=== PATIENT | female | born 1980 | race Caucasian/White ===

== ENCOUNTER 2016-11-03 09:21 | Emergency (ER) | payer OTHER ==
[2016-11-03 09:40] VITALS: BP 119/73
--- NOTE | 2016-11-03 10:21 | UC ---
[facility] General HPI - HPI Summary HPI Summary: complaint of pain in her upper jaw left side for the last 4 months tooth pulled 4 months ago by [facility] in [place] hasn't followed up with dentist pain is intermittent since then , pain in gum that shoots into her face mild swelling in left cheek pain is worse with chewing , hot and cold foods hurts her jaw denies fever taking ibuprofen for pain without relief lost her dad several days ago feels sad and depressed not sleeping well has support from other family members-denies suicidal ideation since her father she is having more symptoms of her chronic conditions- generalized abdominal pain, neck pain lower back pain for the last year sometimes the pain starts in her hands then goes to her back then down her legs- she had appt for further evaluation and nerve testing with her PCP at [facility] but she cancelled her appt. intermittent lower back pain chronic neck pain, hx of migraines denies fever and incontinence - History of Current Complaint Hx Obtained From: Patient <Aishwarya Donnelly - Last Filed: 11/03/16 10:45> <Gloria Le - Last Filed: 11/03/16 11:40> - History of Current Complaint Chief Complaint: UCDentalProblem Stated Complaint: LUMP INSIDE OF MOUTH Time Seen by Provider: 11/03/16 10:10 - Allergy/Home Medications Allergies/Adverse Reactions: Allergies Allergy/AdvReac Type Severity Reaction Status Date / Time Hydrocodone AdvReac Nausea Verified 11/03/16 09:40 PMH/Surg Hx/FS Hx/Imm Hx Previously Healthy: No - chronic back pain, migrinaes GI/ History: Other - chronic abdominal pain for over 1 year Other GI/ History: chronic abdominal pain Neurological History: Migraine Psychological History: Depression - Surgical History Surgical History: Yes Surgery Procedure, Year, and Place: Tubal ligation 2004, . Cholecystectomy . x4: 2002, 2004, 2006, 2008, . Cervical CA surgery age 16. D/C, 2001. uterine ablation. - Family History Known Family History: Positive: Cardiac Disease, Hypertension, Diabetes - Social History Occupation: Employed Part-time Lives: With Family Alcohol Use: Occasionally Alcohol Amount: 4 PER WEEK Substance Use Type: Marijuana Substance Use Comment - Amount & Last Used: Occasionally Smoking Status (MU): Heavy Every Day Tobacco Smoker Type: Cigarettes Amount Used/How Often: 1/2 PPD Have You Smoked in the Last Year: Yes Household Exposure Type: Cigarettes Cessation Counseling: Patient Advised to Stop - Immunization History Most Recent Influenza Vaccination: not utd Most Recent Tetanus Shot: unsure Most Recent Pneumonia Vaccination: none <Aishwarya Donnelly - Last Filed: 11/03/16 10:45> Review of Systems Constitutional: Negative Skin: Negative Eyes: Negative ENT: Dental Pain Respiratory: Negative Cardiovascular: Palpitations Gastrointestinal: Abdominal Pain Genitourinary: Negative Motor: Negative Neurovascular: Negative Musculoskeletal: Other: - lower back pain Neurological: Numbness Psychological: Depressed All Other Systems Reviewed And Are Negative: Yes <Aishwarya Donnelly - Last Filed: 11/03/16 10:45> Physical Exam Triage Information Reviewed: Yes Appearance: Well-Nourished, Pain Distress Vital Signs: Initial Vital Signs Temp 97.4 F 11/03/16 09:31 Pulse 78 11/03/16 09:31 Resp 16 11/03/16 09:31 BP 119/73 11/03/16 09:31 Pulse Ox 100 11/03/16 09:31 Vital Signs Reviewed: Yes Eyes: Positive: Conjunctiva Clear ENT: Positive: Pharynx normal, Other: - left side of face with milfd edema no orbital edema. Negative: Nasal congestion, TMs normal Dental: Positive: Abscess @ - 13-14 Neck: Positive: No Lymphadenopathy Respiratory: Positive: Lungs clear, Normal breath sounds, No respiratory distress, No accessory muscle use Cardiovascular: Positive: RRR, No Murmur, Pulses Normal Abdomen Description: Positive: Nontender, No Organomegaly, Soft. Negative: CVA Tenderness (R), CVA Tenderness (L), Distended, Guarding Bowel Sounds: Positive: Present Musculoskeletal: Positive: Other: - Spine have no noted deformities or signs of inflammation. Curvature of thoracic, and lumbar spine are within normal limits. Bony features of shoulders and hips are of equal height bilaterally. Posture is upright, and gait is smooth and normal. Spinous processes of T1-L5 palpable, midline, and non-tender; No step-offs. Back muscles are tight no paraspinal tenderness. Flexion, extension, and rotation of the remaining spinal column is within normal limits. Patient can flex forward and reach toes with minimal pain. Lateral bending causes no discomfort when bending to the right and left side. Neurological Exam: Normal Neurological: Positive: Other: - negative SLR patellar reflexes are intact equal strength in BUE, negative phalen's sign Psychological Exam: Normal Skin Exam: Normal <Aishwarya Donnelly - Last Filed: 11/03/16 10:45> Vital Signs: Initial Vital Signs Temp 97.4 F 11/03/16 09:31 Pulse 78 11/03/16 09:31 Resp 16 11/03/16 09:31 BP 119/73 11/03/16 09:31 Pulse Ox 100 11/03/16 09:31 <Gloria Le - Last Filed: 11/03/16 11:40> Course/Dx - Course Course Of Treatment: exam completed. will treat for dental abscess. pt with several other chronic complaits of neckpain, back pain, abdominal pain, bilateral arm pain and numbness- no urgent s/s of need for further evaluation and discussed her need for followup care with PCP, dentist and counseling - Differential Dx - Multi-Symptom Provider Diagnoses: dental abscess <Aishwarya Donnelly - Last Filed: 11/03/16 10:45> Discharge <Aishwarya Donnelly - Last Filed: 11/03/16 10:45> <Gloria Le - Last Filed: 11/03/16 11:40> - Discharge Plan Condition: Stable Disposition: HOME Prescriptions: Amoxicillin/Clavulanate TAB* [Augmentin TAB 875*] 875 mg PO BID #20 tab oxyCODONE/Acetamin 5/325 MG* [Percocet 5/325 TAB*] 1 tab PO Q4H PRN #12 tab MDD 6 PRN Reason: Pain Patient Education Materials: Dental Abscess (ED) Referrals: Beny Boyle DO [Primary Care Provider] - Additional Instructions: Please start antibiotic as directed please call dentist for followup care Increase fluids and rest Take percocet for 2 days then return to taking acetaminophen or ibuprofen for pain Please review your discharge instructions. If your symptoms do not improve please call your primary care provider or return to urgent care. Please call [facility] for bereavement counseling- E-mail: [email or web address] It is important that your return to your primary care provider for management of your chronic back pain, neck pain, abdominal pain, migraines and numbness in your hands If any of your symptoms worsen please return to urgent care or the emergency department Attestation Statement User Type: Provider - I was available for consult. This patient was seen by the SHANKAR. The patient was not presented to, seen by, or examined by me. -Karel <Gloria Le - Last Filed: 11/03/16 11:40>
== END 2016-11-03 10:52 | disposition home or self-care (01) ==
LOC: UCEAST 09:21
DX: K04.7 Periapical abscess without sinus (principal)
CPT/HCPCS: 99212; G0463

== ENCOUNTER 2017-02-01 12:35 | Emergency (ER) | payer SELFPAY ==
[2017-02-01 12:52] VITALS: BP 133/91
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
== END 2017-02-01 12:58 | disposition short-term general hospital (02) ==
LOC: UCEAST 12:35
DX: R41.82 Altered mental status, unspecified (principal); R03.0 Elevated blood-pressure reading, without diagnosis of hypertension; R51 Headache; H53.8 Other visual disturbances; R26.81 Unsteadiness on feet; J45.909 Unspecified asthma, uncomplicated; Z88.6 Allergy status to analgesic agent; Z88.5 Allergy status to narcotic agent; F17.210 Nicotine dependence, cigarettes, uncomplicated
CPT/HCPCS: 99213; G0463

== ENCOUNTER 2017-02-01 13:17 | Emergency (ER) | payer SELFPAY ==
[2017-02-01] MEDS ORDERED: traMADol TAB* 50 MG PO ONE (14:03)
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
[2017-02-01 15:47] VITALS: BP 113/72
== END 2017-02-01 15:58 | disposition home or self-care (01) ==
LOC: ED 13:17
DX: S13.9XXA Sprain of joints and ligaments of unspecified parts of neck, initial encounter (principal); M54.2 Cervicalgia; H53.8 Other visual disturbances; R51 Headache; V49.9XXA Car occupant (driver) (passenger) injured in unspecified traffic accident, initial encounter; Y93.9 Activity, unspecified; Y92.9 Unspecified place or not applicable
CPT/HCPCS: 70450; 72125; 99283; A9270-GY

== ENCOUNTER 2017-06-14 04:48 | Observation (INO) | payer OTHER ==
[2017-06-14] MEDS ORDERED: NS 0.9% 1000 ML* 1,000 ML IV ONE (05:14)
[2017-06-14] MEDS ORDERED: Ketorolac INJ* 30 MG/ML 1 ML VIAL IV PUSH ONE (05:15)
[2017-06-14] MEDS ORDERED: Dexamethasone IV* 4 MG/ML 5 ML VIAL (20 MG) IVPB ONE (05:15)
[2017-06-14] MEDS ORDERED: Piperacillin/Tazobac ADVAN(*) 3.375 GM in NS 0.9% 100 ML* 100 ML IVPB ONE (05:15)
[2017-06-14] MEDS ORDERED: Metoclopramide IV* 5 MG/ML 2 ML VIAL IV SLOW PU ONE (05:31)
[2017-06-14 05:53] LABS: Hematocrit 45 % (35-47); Hemoglobin 15.7 g/dl (12.0-16.0); Mean Corpuscular HGB Conc 35 g/dl (31-36); Mean Corpuscular Hemoglobin 32 pg (27-31); Mean Corpuscular Volume 92 fL (80-97); Mean Platelet Volume 8 um3 (7.4-10.4); Platelet Count 267 10^3/ul (150-450); Red Cell Distribution Width 13 % (10.5-15); White Blood Count 25.1 10^3/ul (3.5-10.8)
[2017-06-14 06:05] LABS: EGFR Non-African American 118.3 (>60)
[2017-06-14] MEDS ORDERED: KCL 20 MEQ/100 ML IVPREMIX* 20 MEQ/100 ML BAG IV ONE (06:17)
[2017-06-14 06:36] LABS: ABS Basophils 0.1 10^3/ul (0-0.2); ABS Eosinophils 0 10^3/ul (0-0.6); ABS Lymphocytes 0.9 10^3/ul (1.0-4.8); ABS Monocytes 2.5 10^3/ul (0-0.8); ABS Neutrophils 21.6 10^3/ul (1.5-7.7); ABS Nucleated RBC 0 10^3/ul; Eosinophil % 0 % (0-6); Lymphocyte % 3.6 % (25-47); Nucleated Red Blood Cells % 0
[2017-06-14] MEDS: KCL premix 10MEQ/50 ML x 2 BAGS IV SCH ×2 (07:41→08:45)
[2017-06-14] MEDS ORDERED: Iohexol 300* (CONTRAST) 10 ML SDV IV ONE (09:00)
--- NOTE | 2017-06-14 09:36 | RAD ---
INDICATION: Vomiting. Intermittent cough exacerbated with vomiting. Strep throat on antibiotics. Progressive worsening. Clinical concern for potential peritonsillar abscess. COMPARISON: February 01, 2017 CT cervical spine without contrast. TECHNIQUE: Multidetector CT images skull base to lung apices with 50 mL Omnipaque 300 IV contrast. Multiplanar reformation. REPORT: Artifact from dental amalgam. Mild thickening of the LEFT hypopharyngeal mucosal space contours at the level of the vallecula including the LEFT margin of the epiglottis. LEFT greater than RIGHT prominent adenoids with midline approximation. Mild increased density in the LEFT paravertebral fat . No loculated abscess collection evident. No abnormal soft tissue gas collection. Unremarkable false and true vocal cords and visualized subglottic airway. Top normal 1.3 cm short axis jugulodigastric lymph nodes and additional upper normal size neck lymph nodes at the internal jugular chains and posterior triangles. Unremarkable submandibular and parotid glands. Unremarkable thyroid gland. No alveolar consolidation at the visualized upper lung zones. Small mucous retention cysts or polyps at the floors of the maxillary sinuses. Negative for paranasal sinus air-fluid levels within the [id number]. Clear mastoid air spaces. No suspicious osseous lesions evident. IMPRESSION: 1. Mild thickening of the LEFT hypopharyngeal mucosal space contours at the level of the vallecula including the LEFT margin of the epiglottis. LEFT greater than RIGHT prominent adenoids with midline approximation. Mild increased density in the LEFT paravertebral fat. No loculated abscess collection evident. 2. Top normal 1.3 cm short axis jugulodigastric lymph nodes and additional upper normal size neck lymph nodes at the internal jugular chains and posterior triangles.
[2017-06-14] MEDS: Clindamycin 600 MG IVPREMIX(* 600 MG/50 ML SDV IV SCH ×2 (11:24→20:24)
[2017-06-14] MEDS: Ondansetron INJ* 2 MG/ML VIAL IV PRN ×3 (11:34→20:21)
[2017-06-14] MEDS: Morphine INJ* 2 MG/ML 1 ML SYRINGE (TWO MG - NEW SYRINGE VERSION) IV PRN ×3 (11:34→21:28)
[2017-06-14 12:40] LABS: Urine Appearance Cloudy; Urine Blood 2+ (Negative); Urine Color Amber; Urine Ketones 2+ (Negative); Urine Protein 2+(100 mg/dL) (Negative); Urine Specific Gravity > 1.060 (1.010-1.030); Urine Urobilinogen Positive (Negative)
--- NOTE | 2017-06-14 13:14 | HP ---
HISTORY AND PHYSICAL: DATE OF ADMISSION: 06/12/17 TIME OF EXAMINATION: 9 a.m. PRIMARY CARE PHYSICIAN: Dr. Singletary. CHIEF COMPLAINT: Sore throat, nausea, and vomiting. HISTORY OF PRESENT ILLNESS: This is a 37-year-old female with no past medical history who presents with 2 days of sore throat. She was diagnosed with strep pharyngitis at urgent care yesterday and was given amoxicillin. She had taken several doses of amoxicillin when she began vomiting last night. She said she vomited every 20 minutes and was unable to eat anything, so she came to the emergency department. She reports some subjective fevers and chills. She has had 1 sick contact in her home and denies earache, runny nose, but she has had a cough that is nonproductive. PAST MEDICAL HISTORY: None. HOME MEDICATIONS: None. SOCIAL HISTORY: She lives with her girlfriend and their 5 children. She smokes a half a pack of cigarettes per day and uses occasional alcohol. She works cleaning homes. REVIEW OF SYSTEMS: Positive for fever, chills, sore throat, cough and negative for weight changes, abdominal pain, diarrhea, constipation, or body aches. PHYSICAL EXAMINATION GENERAL: Alert, well nourished female, in no distress. VITAL SIGNS: Temperature 99.8, heart rate 105, respirations 16, pulse ox 97% on room air, blood pressure 135/86. HEENT: No conjunctival injection. Moist mucosa. Pharyngeal erythema is noted and markedly enlarged tonsils with exudates. No palatal petechiae or ulcers. NECK: Bilateral submandibular lymphadenopathy. No cervical adenopathy. CHEST: Regular rate and rhythm. PMI is nondisplaced. Lungs are clear bilaterally. ABDOMEN: Soft, nontender, nondistended. EXTREMITIES: No rashes. No edema. LABORATORY DATA: White blood cells 25, hemoglobin 15.7, platelets 267. Sodium 132, potassium 3.0, bicarb 22, creatinine 0.58. Alk phos 115, ALT 109, AST 58. Monospot negative. ASSESSMENT AND PLAN: This is a 37-year-old female with no past medical history , who presents 1 day after being diagnosed with strep pharyngitis at urgent care with worsening throat pain and nausea and vomiting. 1. Strep pharyngitis. We will treat with clindamycin IV until she is able to take p.o., at which time she can be switched to p.o. clindamycin. Also, check a flu swab. I am checking a CT neck to rule out retropharyngeal or peritonsillar abscess. Continue IV fluids until she is able to take p.o. and check flu swab. 2. Sepsis. Likely related to strep pharyngitis. She has no other infectious sources at this point. 3. Elevated transaminases, likely related to sepsis. She has no abdominal complaints except nausea and vomiting, which I suspect are related to either pharyngitis or the amoxicillin that she took. We will continue to trend. 4. DVT prophylaxis. Alfredo. [id number]/[facility] #: [id number] MTDD
--- NOTE | 2017-06-14 20:05 | ED ---
Erin Barry Nilda, scribed for Purvi Salcedo MD on 06/14/17 at 0524 . Complex/Multi-Sys Presentation - HPI Summary HPI Summary: This patient is a 37 year old F presenting to [facility] accompanied by partner with a chief complaint of constant vomiting for the past 3-4 hours. Per partner, pt was diagnosed with strep throat yesterday. Partner reports sore throat, cough, swollen tonsils with exudate, fever, and diarrhea. Pain rated 8/10 in severity. Pt was treated with 4 Amoxicillin (500mg) so far yesterday, but has been vomiting. Symptoms aggravated and alleviated by nothing. - History Of Current Complaint Chief Complaint: EDNauseaVomitDiarrh Time Seen by Provider: 06/14/17 05:00 Hx Obtained From: Patient, Family/Bacteriology Technician Onset/Duration: Sudden Onset, Lasting Hours, Still Present Timing: Constant Severity Currently: Severe Location: Pain At: - throat Aggravating Factor(s): nothing Alleviating Factor(s): nothing Associated Signs And Symptoms: Positive: Other - sore throat, cough, swollen tonsils with exudate, fever, and diarrhea. - Allergies/Home Medications Allergies/Adverse Reactions: Allergies Allergy/AdvReac Type Severity Reaction Status Date / Time Acetaminophen [From Percocet] Allergy Itching Verified 02/01/17 12:59 Oxycodone [From Percocet] Allergy Itching Verified 02/01/17 12:59 Hydrocodone AdvReac Nausea Verified 02/01/17 12:59 Unknown Pain medication Allergy Itching Uncoded 02/01/17 12:59 PMH/Surg Hx/FS Hx/Imm Hx Endocrine/Hematology History: Denies: Hx Diabetes - hypoglycemia, Hx Thyroid Disease Cardiovascular History: Denies: Hx Hypertension, Other Cardiovascular Problems/Disorders Respiratory History: Reports: Hx Asthma - Exercise induced, humidity Denies: Hx Chronic Obstructive Pulmonary Disease (COPD), Other Respiratory Problems/Disorders GI History: Denies: Hx Ulcer, Other GI Disorders History: Reports: Hx Kidney Stones - LAST TIME 2004 Musculoskeletal History: Denies: Other Musculoskeletal History Sensory History: Denies: Hx Contacts or Glasses, Hx Hearing Aid Opthamlomology History: Denies: Hx Contacts or Glasses Neurological History: Reports: Hx Migraine - NOT OFTEN Denies: Other Neuro Impairments/Disorders - Cancer History Cancer Type, Location and Year: Cervical CA - Surgical History Surgery Procedure, Year, and Place: Tubal ligation 2004, [place]. Cholecystectomy [place]. x4: 2002, 2004, 2006, 2008, . Cervical CA surgery age 16. D/C, 2001. uterine ablation. Hx Anesthesia Reactions: No Infectious Disease History: No Infectious Disease History: Denies: Hx Clostridium Difficile, Hx Hepatitis, Hx Human Immunodeficiency Virus (HIV), Hx of Known/Suspected MRSA, Hx Shingles, Hx Tuberculosis, Hx Known/ Suspected VRE, Hx Known/Suspected VRSA, History Other Infectious Disease, Traveled Outside the [place] in Last 30 Days - Family History Known Family History: Positive: Cardiac Disease, Hypertension, Diabetes - Social History Lives: With Family Alcohol Use: Occasionally Alcohol Amount: 4 PER WEEK-Last Drink 2 drinks a couple days ago Substance Use Type: Reports: Marijuana Substance Use Comment - Amount & Last Used: Occasionally- last used 1 week ago Smoking Status (MU): Heavy Every Day Tobacco Smoker Type: Cigarettes Amount Used/How Often: 1/2 PPD Have You Smoked in the Last Year: Yes Review of Systems Positive: Fever Positive: Sore Throat, Other - swollen tonsils with exudate Positive: Cough Positive: Vomiting, Diarrhea All Other Systems Reviewed And Are Negative: Yes Physical Exam - Summary Physical Exam Summary: VITAL SIGNS: Reviewed. GENERAL: Patient is a well-developed and nourished female who is lying comfortable in the stretcher. Patient is not in any acute respiratory distress. HEAD AND FACE: No signs of trauma. No ecchymosis, hematomas or skull depressions. No sinus tenderness. EYES: PERRLA, EOMI x 2, No injected conjunctiva, no nystagmus. EARS: Hearing grossly intact. Ear canals and tympanic membranes are within normal limits. THROAT: Bilat tonsillar hyperemia with exudate, left mildy more than right NECK: Supple, trachea is midline, cervical lymphadenopathy that's tender bilaterally. no JVD, no carotid bruit, no c-spine tenderness, neck with full ROM. CHEST: Symmetric, no tenderness at palpation LUNGS: Clear to auscultation bilaterally. No wheezing or crackles. CVS: Regular rate and rhythm, S1 and S2 present, no murmurs or gallops appreciated. ABDOMEN: Soft, non-tender. No signs of distention. No rebound no guarding, and no masses palpated. Bowel sounds are normal. EXTREMITIES: FROM in all major joints, no edema, no cyanosis or clubbing. NEURO: Alert and oriented x 3. No acute neurological deficits. Speech is normal and follows commands. SKIN: Dry and warm Triage Information Reviewed: Yes Vital Signs On Initial Exam: Initial Vitals Temp Pulse Resp BP Pulse Ox 99.8 F 105 16 135/86 97 06/14/17 04:49 06/14/17 04:49 06/14/17 04:49 06/14/17 04:49 06/14/17 04:49 Vital Signs Reviewed: Yes Diagnostics - Vital Signs Vital Signs Temp Pulse Resp BP Pulse Ox 06/14/17 04:49 99.8 F 105 16 135/86 97 - Laboratory Result Diagrams: 06/14/17 05:27 06/14/17 05:27 Lab Statement: Any lab studies that have been ordered have been reviewed, and results considered in the medical decision making process. Complex Multi-Symp Course/Dx Assessment/Plan: Pt is a 37 y/o F who presents to ER with dx of strep yesterday. Pt is vomiting and unable to eat. Exam titus pt has enlarged tonsils bilaterally. Wbc and CRP elevated. 0616 Dr. Basilio (hospitalist) agrees to admit pt. Pt is stable and will be admittd for iv steroids and iv abx. Dx. Acute tonsillitis - Diagnoses Provider Diagnoses: Acute tonsillitis - Physician Notifications Discussed Care Of Patient With: Kera Basilio - Hospitalist Time Discussed With Above Provider: 06:16 Instructed by Provider To: Admit As Inpatient Discharge - Discharge Plan Condition: Stable Disposition: ADMITTED TO [facility] Referrals: Beny Boyle DO [Primary Care Provider] - The documentation as recorded by the Erin toribio Nilda accurately reflects the service I personally performed and the decisions made by me, Purvi Salcedo MD.
[2017-06-14] MEDS: HYDROmorphone INJ* 2 MG/ML CARPUJECT SYRINGE IV SLOW PU PRN (22:52)
[2017-06-15] MEDS: Clindamycin 600 MG IVPREMIX(* 600 MG/50 ML SDV IV SCH ×3 (02:55→20:09)
[2017-06-15] MEDS: HYDROmorphone INJ* 2 MG/ML CARPUJECT SYRINGE IV SLOW PU PRN ×7 (03:02→22:59)
[2017-06-15 06:36] LABS: Hematocrit 40 % (35-47); Hemoglobin 13.7 g/dl (12.0-16.0); Mean Corpuscular HGB Conc 34 g/dl (31-36); Mean Corpuscular Hemoglobin 32 pg (27-31); Mean Corpuscular Volume 93 fL (80-97); Mean Platelet Volume 8 um3 (7.4-10.4); Platelet Count 255 10^3/ul (150-450); Red Cell Distribution Width 13 % (10.5-15); White Blood Count 21.2 10^3/ul (3.5-10.8)
[2017-06-15 06:55] LABS: ABS Basophils 0.1 10^3/ul (0-0.2); ABS Eosinophils 0 10^3/ul (0-0.6); ABS Lymphocytes 2.6 10^3/ul (1.0-4.8); ABS Monocytes 2.2 10^3/ul (0-0.8); ABS Neutrophils 16.3 10^3/ul (1.5-7.7); ABS Nucleated RBC 0 10^3/ul; Eosinophil % 0.1 % (0-6); Lymphocyte % 12.3 % (25-47); Nucleated Red Blood Cells % 0
[2017-06-15] MEDS: Ondansetron INJ* 2 MG/ML VIAL IV PRN ×3 (07:21→20:09)
[2017-06-15 10:00] LABS: EGFR Non-African American 134.2 (>60)
--- NOTE | 2017-06-15 10:06 | PN ---
Subjective Date of Service: 06/15/17 Interval History: No N/V since last night Throat is painful Able to tolerate some liquid broth this AM No trouble handling secretions Objective Active Medications: Hydromorphone HCl (Dilaudid Inj*) 1 mg IV SLOW PU Q4H PRN PRN Reason: PAIN Last Admin: 06/15/17 07:20 Dose: 1 mg Clindamycin HCl/Dextrose (Cleocin 600 Mg Ivpremix(*) Sdv) 600 mg in 50 mls @ 100 mls/hr IV Q8H FERNANDO Last Admin: 06/15/17 02:55 Dose: 100 mls/hr Sodium Chloride (Ns 0.9% 1000 Ml*) 1,000 mls @ 125 mls/hr IV PER RATE FERNANDO Stop: 06/16/17 18:14 Ondansetron HCl (Zofran Inj*) 4 mg IV Q4H PRN PRN Reason: NAUSEA Last Admin: 06/15/17 07:21 Dose: 4 mg Vital Signs - 8 hr 06/15/17 06/15/17 06/15/17 02:27 03:02 04:47 Temperature 98.1 F Pulse Rate 96 Respiratory 20 18 16 Rate Blood Pressure 120/62 (mmHg) O2 Sat by Pulse 98 Oximetry 06/15/17 06/15/17 06/15/17 07:10 07:19 07:20 Temperature 97.8 F Pulse Rate 84 94 Respiratory 18 18 Rate Blood Pressure 112/72 (mmHg) O2 Sat by Pulse 98 Oximetry 06/15/17 06/15/17 07:27 08:53 Temperature Pulse Rate Respiratory 18 16 Rate Blood Pressure (mmHg) O2 Sat by Pulse Oximetry Oxygen Devices in Use Now: None Appearance: NAD Eyes: No Scleral Icterus, PERRLA Ears/Nose/Mouth/Throat: - - TMs sharp b/l with good light reflex, erythematous and swollen tonsills with small amount of exudate Neck: - - anterior tender DEWEY in cervical chain Respiratory: Symmetrical Chest Expansion and Respiratory Effort, Clear to Auscultation Cardiovascular: RRR Abdominal: NL Sounds; No Tenderness; No Distention, No Hepatosplenomegaly Lymphatic: No Cervical Adenopathy, No Axillary Adenopathy Extremities: No Edema Skin: No Rash or Ulcers Neurological: Alert and Oriented x 3 Result Diagrams: 06/15/17 06:25 06/15/17 06:25 Microbiology and Other Data: Microbiology 06/14/17 11:25 Influenza Types A,B Antigen (YOSELIN) - Final Nasopharyngeal Specimen received for Influenza A/B Molecular testing Assess/Plan/Problems-Billing Assessment: 37 yo F admitted with sepsis 2/2 strep pharyngitis - Patient Problems (1) Sepsis Comment: 2/2 strep pharyngitis failed outpatient amoxicillin Clindamycin IV 2 liters NS today at 125cc/hr advance diet as tolerated (2) Tobacco abuse Comment: counseled cessation declining nicotine replacement (3) Hypokalemia Comment: recheck now and replace as needed (4) DVT prophylaxis Comment: SCDs
[2017-06-15] MEDS: NS 0.9% 1000 ML* 1,000 ML IV SCH ×2 (10:33→18:09)
[2017-06-16] MEDS: HYDROmorphone INJ* 2 MG/ML CARPUJECT SYRINGE IV SLOW PU PRN ×4 (01:10→08:32)
[2017-06-16] MEDS: Clindamycin 600 MG IVPREMIX(* 600 MG/50 ML SDV IV SCH (03:02)
[2017-06-16] MEDS: Ondansetron INJ* 2 MG/ML VIAL IV PRN (03:12)
[2017-06-16] MEDS: ALPRAZolam TAB* 0.25 MG PO ONE ×2 (05:39→06:01)
[2017-06-16 08:04] LABS: ABS Basophils 0 10^3/ul (0-0.2); ABS Eosinophils 0.1 10^3/ul (0-0.6); ABS Lymphocytes 1.8 10^3/ul (1.0-4.8); ABS Monocytes 1.2 10^3/ul (0-0.8); ABS Neutrophils 9.8 10^3/ul (1.5-7.7); ABS Nucleated RBC 0 10^3/ul; Eosinophil % 0.4 % (0-6); Hematocrit 36 % (35-47); Hemoglobin 12.6 g/dl (12.0-16.0); Lymphocyte % 14.1 % (25-47); Mean Corpuscular HGB Conc 35 g/dl (31-36); Mean Corpuscular Hemoglobin 32 pg (27-31); Mean Corpuscular Volume 91 fL (80-97); Mean Platelet Volume 8 um3 (7.4-10.4); Nucleated Red Blood Cells % 0; Platelet Count 250 10^3/ul (150-450); Red Blood Count 3.93 10^6/ul (4.0-5.4); Red Cell Distribution Width 13 % (10.5-15)
[2017-06-16 08:16] VITALS: BP 113/72
[2017-06-16 08:23] LABS: EGFR Non-African American 176.5 (>60)
[2017-06-16] MEDS ORDERED: Potassium Chloride LIQUID* 20 MEQ PACKET PO SCH (09:00)
[2017-06-16] MEDS ORDERED: oxyCODONE ORAL.SOLN* 5 MG/5 ML UDC PO PRN (09:44)
[2017-06-16] MEDS ORDERED: Clindamycin Oral SOLUTION* 75 MG/5 ML ORAL.SOLN PO SCH (14:00)
--- NOTE | 2017-06-17 00:35 | DS ---
CC: Dr. Boyle; ROCIO Guillaume * DISCHARGE SUMMARY: DATE OF ADMISSION: 06/14/17 DATE OF DISCHARGE: 06/16/17 PRIMARY CARE PROVIDER: ROCIO Guillaume. PRIMARY DIAGNOSIS: pharyngitis. SECONDARY DIAGNOSES: Include: 1. Hypokalemia. 2. Transaminitis. MEDICATIONS ON DISCHARGE: Include: 1. Clindamycin oral solution 300 mg 3 times a day for 10 additional days. 2. Zofran 4 mg ODT every 4 hours as needed for nausea. 3. Oxycodone oral solution 10 mg every 4 hours as needed for pain, dispensed quantity for 3 additional days. PERTINENT LABORATORY DATA: Notable for white blood cell count on presentation 25.1, on discharge 13.0 which was 75.8% neutrophils, potassium on the day of discharge was 3.0 prior to administration of 60 mEq of potassium. On followup please, followup improvement in tonsillar erythema and edema. Consider repeat CBC to monitor for complete resolution of leukocytosis. Consider BMP to monitor for hypokalemia resolution. Please follow up microbiology for urinalysis until completion. HISTORY OF PRESENT ILLNESS AND HOSPITAL COURSE: This is a 37-year-old female who was diagnosed with strep throat at urgent care the day prior to presentation. She was placed on amoxicillin; however, developed worsening nausea and vomiting, was unable to take her medications and presented to the hospital. She was placed on clindamycin IV. Her leukocytosis improved and her symptoms improved, although she did require a fairly high amount of pain medication before transitioning to oxycodone oral solution on the day of discharge which she was tolerating well. Her diet was advanced to a soft diet where she was able to eat and drink. She was noted to have worsening hypokalemia nadired at 3.0 suspect in the setting of poor dietary intake in the setting of strep throat. There are no complications at this patient's hospital stay. Reason to return to the hospital included but were not limited to recurrent or worsening symptoms including inability to swallow medications, nausea, vomiting , chest pain, shortness of breath, loss of consciousness, near loss of consciousness, or bleeding from any source was discussed with the patient, she acknowledged understanding. Greater than 45 minutes was spent in the discharge of this patient, greater than half was spent [id number] with the patient. [id number]/[facility] #: [id number] [facility]
== END 2017-06-16 14:50 | disposition home or self-care (01) ==
LOC: ED 04:48 → INTOOBSV 08:31 → MED 08:31
PROVIDERS: ADMIT Internal Medicine; ATTEND Internal Medicine
DX: J02.0 Streptococcal pharyngitis (principal); A40.9 Streptococcal sepsis, unspecified; R05 Cough; R50.9 Fever, unspecified; R19.7 Diarrhea, unspecified; F17.210 Nicotine dependence, cigarettes, uncomplicated; R11.10 Vomiting, unspecified
CPT/HCPCS: 36415; 70491; 80048; 80053; 81003; 81015; 82248; 84702; 85025; 86140; 86308; 87502; 96365; 96366; 96375; 99284; A9270-GY; G0378; J1100; J1170; J1885; J2270; J2405; J2543; J2765; J3480; Q9967

== ENCOUNTER 2017-12-02 11:30 | Emergency (ER) | payer SELFPAY ==
[2017-12-02 11:37] VITALS: BP 119/78
[2017-12-02] MEDS ORDERED: Metoclopramide IV* 5 MG/ML 2 ML VIAL IV ONE (11:50)
[2017-12-02] MEDS ORDERED: Ketorolac INJ* 30 MG/ML 1 ML VIAL IV PUSH ONE (11:50)
[2017-12-02] MEDS ORDERED: diPHENhydraMINE IV* 50 MG/ML 1 ml VIAL (BENADRYL) IV ONE (11:50)
[2017-12-02] MEDS ORDERED: NS 0.9% 1000 ML* 1,000 ML IV ONE (11:51)
--- NOTE | 2017-12-02 13:52 | UC ---
Jackson Barry Rebecca, scribed for Anil Alberto MD on 12/02/17 at 1151 . General HPI - HPI Summary HPI Summary: Pt is a 37 y/o F who presents to [facility] c/o diffuse right-sided pain and R hand numbness for 3 days. Pt states "my whole, right side hurts and is numb" with associated pain ranked 10/10 on triage. Describes pain as intermittent, sharp shooting sensations that go into her head, torso, entire RUE, and entire RLE with numbness in the entire right hand. Sx aggravated by RUE movement. Reports she has been taking "Aaron" for pain without relief, as well as a left over hydrocodone from tooth extraction which did not resolve sx. Additionally c/o N/ V. Denies diarrhea. Triage note states that she has been experiencing numbness intermittently for 1 year. - History of Current Complaint Chief Complaint: UCHeadache Stated Complaint: SHARP PAINS ON RIGHT SIDE Time Seen by Provider: 12/02/17 11:41 Hx Obtained From: Patient Hx Last Menstrual Period: 11/12/2017 Onset/Duration: Lasting Days - 3 days, Still Present Current Severity: Severe Pain Intensity: 10 Pain Location at: Diffuse right side - head, torso, RUE, RLE Aggravating: RUE movement Alleviating: Nothing Associated Signs & Symptoms: Positive: Nausea, Vomiting. Negative: Diarrhea - Allergy/Home Medications Allergies/Adverse Reactions: Allergies Allergy/AdvReac Type Severity Reaction Status Date / Time hydrocodone Allergy Nausea Verified 12/02/17 11:39 morphine Allergy Itching Verified 12/02/17 11:37 Unknown Pain medication Allergy Itching Uncoded 02/01/17 12:59 Home Medications: Home Medications Aspirin/Caffeine [Aaron Back-Body Caplet] 1 tab PO BID PRN 12/02/17 [History Confirmed 12/02/17] PMH/Surg Hx/FS Hx/Imm Hx Endocrine History: Thyroid Disease Respiratory History: Asthma - Surgical History Surgical History: Yes Surgery Procedure, Year, and Place: Tubal ligation 2004, . Cholecystectomy 2004, . x4: 2002, 2004, 2006, 2008, . Cervical CA surgery age 16. D/C, 2001. 2014 uterine ablation. - Family History Known Family History: Positive: Cardiac Disease, Hypertension, Diabetes - Social History Alcohol Use: Occasionally Alcohol Amount: once weekly Substance Use Type: Marijuana Substance Use Comment - Amount & Last Used: Occasionally- last used 1 week ago Smoking Status (MU): Heavy Every Day Tobacco Smoker Type: Cigarettes Amount Used/How Often: 1/2 PPD Have You Smoked in the Last Year: Yes Household Exposure Type: Cigarettes - Immunization History Most Recent Influenza Vaccination: 2016 Most Recent Tetanus Shot: unsure Most Recent Pneumonia Vaccination: none Review of Systems Constitutional: Negative Skin: Negative Eyes: Negative ENT: Negative Respiratory: Negative Cardiovascular: Negative Gastrointestinal: Vomiting, Nausea Genitourinary: Negative Motor: Negative Neurovascular: Negative Musculoskeletal: Other: - Diffuse right-sided pain (head, torso, RUE and RLE) Neurological: Numbness - Diffuse R hand numbness Psychological: Negative All Other Systems Reviewed And Are Negative: Yes - Comments Additional Review of Systems Comments: NEGATIVE: Diarrhea Physical Exam - Summary Physical Exam Summary: Appearance: Well appearing, no pain distress Skin: light diaphoresis, warm, reflects adequate perfusion Head/face: normal Eyes: EOMI, ALEX ENT: normal Neck: supple, non-tender Respiratory: CTA, breath sounds present Cardiovascular: Tachycardic but regular, pulses symmetrical Musculoskeletal: Popping and cracking in joints, no CVA tenderness, strength/ ROM intact, FROM, no weakness, decreased light touch sensation Neuro: normal, motor intact, A&Ox3, no weakness Triage Information Reviewed: Yes Vital Signs: Initial Vital Signs Temp 96.2 F 12/02/17 11:31 Pulse 90 12/02/17 11:31 Resp 18 12/02/17 11:31 BP 119/78 12/02/17 11:31 Pulse Ox 99 12/02/17 11:31 Vital Signs Reviewed: Yes Re-Evaluation - Re-Evaluation First Eval Re-Evaluation Time: 12:48 Change: Improved Course/Dx - Course Course Of Treatment: Patient with right upper extremity pain but through multiple nerve distributions. Possibly radicular. No definite injury. No rash or lesion. No weakness detected on exam. Decreased light touch sensation. No recent tick bites. Likely radicular versus opiate withdrawal. There is no track rosario or evidence of injection drug use. Patient has had multiple visits for pain related complaints however she improved significantly with nonopiate treatment here. This makes radicular etiology much more likely. Treat symptomatically with the addition of Medrol Dosepak. Follow up closely with primary care physician. She may need imaging such as MRI in the future if symptoms continue. - Differential Dx - Multi-Symptom Provider Diagnoses: Cervical radiculopathy, right arm pain Discharge - Sign-Out/Discharge Documenting (check all that apply): Discharge/Admit/Transfer - Discharge - Discharge Plan Condition: Improved Disposition: HOME Prescriptions: Cyclobenzaprine (NF) [Cyclobenzaprine 5 MG (NF)] 5 mg PO TID PRN #12 tab PRN Reason: muscle pain methylPREDNISolone [Medrol] 4 mg PO DAILY #1 tab.ds.pk Naproxen [Naproxen 500 mg tab] 500 mg PO BID PRN #10 tablet.dr PRN Reason: Pain Patient Education Materials: Cervical Radiculopathy (ED) Referrals: Beny Boyle DO [Primary Care Provider] - Additional Instructions: Stay well-hydrated. Call your doctor today to schedule follow-up appointment. You may need further testing to include imaging of her neck. Return with weakness, new symptoms or other concerns. - Billing Disposition and Condition Condition: IMPROVED Disposition: Home The documentation as recorded by the Jackson toribio Rebecca accurately reflects the service I personally performed and the decisions made by , Anil Alberto MD.
== END 2017-12-02 12:56 | disposition home or self-care (01) ==
LOC: UCEAST 11:30
DX: M54.12 Radiculopathy, cervical region (principal); M79.601 Pain in right arm; R11.2 Nausea with vomiting, unspecified; E07.9 Disorder of thyroid, unspecified; J45.909 Unspecified asthma, uncomplicated; Z88.5 Allergy status to narcotic agent; Z82.49 Family history of ischemic heart disease and other diseases of the circulatory system; Z83.3 Family history of diabetes mellitus; F17.210 Nicotine dependence, cigarettes, uncomplicated
CPT/HCPCS: 96360; 96374; 96375; 99212; G0463; J1200; J1885; J2765

== ENCOUNTER 2017-12-13 13:52 | Emergency (ER) | payer OTHER ==
[2017-12-13 14:01] VITALS: BP 124/81
== END 2017-12-13 16:19 | disposition left against medical advice (07) ==
LOC: ED 13:52
DX: M79.601 Pain in right arm (principal); R11.10 Vomiting, unspecified; K59.00 Constipation, unspecified; Z53.21 Procedure and treatment not carried out due to patient leaving prior to being seen by health care provider

== ENCOUNTER → 2019-05-07 | Emergency (ER) | payer OTHER ==
[~2019-05-07] MED LIST: Iohexol 300* (CONTRAST) 10 ML SDV IV ONE; Ketorolac INJ* 30 MG/ML 1 ML VIAL IV ONE; Morphine 4 MG/ML VIAL (1 ml) 4 MG/ML VIAL IV ONE; NS 0.9% 1000 ML** 1,000 ML IV ONE; Ondansetron INJ* 2 MG/ML VIAL IV ONE; Ondansetron ODT TAB* 4 MG PO ONE
--- NOTE | 2019-05-07 19:13 | ED ---
Abdominal Pain/Female - HPI Summary HPI Summary: 39 year old female presents to the ED by EMS with a chief complaint of chest pain, fatigue, vomiting and groin pain starting 3 days ago, much worse an hour [employer]. Patient reports burning and sharp groin pain that radiates to her abdomen from her back. Pain started several weeks ago at work when walking and is worse at the end of the day. Describes as aching pain from back to lower L groin. No vaginal bleeding or discharge. Patient reports vomiting and dry heaving starting an hour [employer] that was constant for several minutes. Additionally she reports paresthesia and numbness to her face and neck as well as general fatigue. Also reported midsternal aching CP that began yesterday when she felt unwell. No hx KS/DVT. No MELGAR. CP intermittent, non exertional. She denies fever and diarrhea. PMHx of chronic right hand numbness. An MRI in August that shows a disc protrusion at C67. She smokes half a pack of cigarettes a day. She smokes occasionally. Hx of kidney stones. - History of Current Complaint Chief Complaint: EDGeneral Stated Complaint: SOB/GROIN PAIN PER EMS Time Seen by Provider: 05/07/19 18:49 Hx Obtained From: Patient Hx Last Menstrual Period: 11/12/2017 ?: No Onset/Duration: Gradual Onset, Lasting Days, Worse Since - Hour [employer] Timing: Constant Severity Initially: Mild Severity Currently: Severe Pain Intensity: 8 Pain Scale Used: 0-10 Numeric Location: Groin Radiates: Yes Radiates to: LLQ, Chest Character: Sharp, Burning Alleviating Factor(s): Nothing Associated Signs and Symptoms: Positive: Chest Pain, Vomiting, Other: - numbness and paresthesia in face and hands, also fatigue Allergies/Adverse Reactions: Allergies Allergy/AdvReac Type Severity Reaction Status Date / Time No Known Allergies Allergy Verified 05/07/19 18:24 PMH/Surg Hx/FS Hx/Imm Hx Endocrine/Hematology History: Denies: Hx Diabetes - hypoglycemia, Hx Thyroid Disease Cardiovascular History: Denies: Hx Hypertension, Hx Pacemaker/ICD, Other Cardiovascular Problems/ Disorders Respiratory History: Reports: Hx Asthma - Exercise induced, humidity Denies: Hx Chronic Obstructive Pulmonary Disease (COPD), Other Respiratory Problems/Disorders GI History: Denies: Hx Ulcer, Other GI Disorders History: Reports: Hx Kidney Stones - LAST TIME 2004 Denies: Hx Renal Disease Musculoskeletal History: Denies: Other Musculoskeletal History Sensory History: Denies: Hx Contacts or Glasses, Hx Hearing Aid Opthamlomology History: Denies: Hx Contacts or Glasses Neurological History: Reports: Hx Migraine - NOT OFTEN Denies: Other Neuro Impairments/Disorders Psychiatric History: Denies: Hx Panic Disorder - Cancer History Cancer Type, Location and Year: Cervical CA - Surgical History Surgery Procedure, Year, and Place: Tubal ligation [place]. Cholecystectomy . x4: 2002, 2004, 2006, 2008, . Cervical CA surgery age 16. D/C, 2001. 2014 uterine ablation. Hx Anesthesia Reactions: No Infectious Disease History: No Infectious Disease History: Denies: Hx Clostridium Difficile, Hx Hepatitis, Hx Human Immunodeficiency Virus (HIV), Hx of Known/Suspected MRSA, Hx Shingles, Hx Tuberculosis, Hx Known/ Suspected VRE, Hx Known/Suspected VRSA, History Other Infectious Disease, Traveled Outside the [place] in Last 30 Days - Family History Known Family History: Positive: Cardiac Disease, Hypertension, Diabetes, Non- Contributory - Social History Alcohol Use: Occasionally Alcohol Amount: once weekly Substance Use Type: Reports: Marijuana Substance Use Comment - Amount & Last Used: Occasionally- last used 1 week ago Smoking Status (MU): Heavy Every Day Tobacco Smoker Type: Cigarettes Amount Used/How Often: 1/2 PPD Have You Smoked in the Last Year: Yes Review of Systems Negative: Fever Positive: Chest Pain Positive: Abdominal Pain, Vomiting. Negative: Diarrhea Positive: Paresthesia, Numbness All Other Systems Reviewed And Are Negative: Yes Physical Exam - Summary Physical Exam Summary: Constitutional: Well-developed, Well-nourished, Alert. Mild Distress Skin: Warm, Dry HENT: Normocephalic; Atraumatic Eyes: Conjunctiva normal Neck: Musculoskeletal ROM normal neck. (-) JVD, (-) Stridor, (-) Nuchal rigidity Cardio: Rhythm regular, rate normal, Heart sounds normal; Intact distal pulses; Radial pulses are 2+ and symmetric. (-) Murmur Pulmonary/Chest wall: Effort normal. (-) Respiratory distress, (-) Wheezes, (-) Rales Abd: Soft, mild LLQ tenderness, (-) Distension, (-) Guarding, (-) Rebound Musculoskeletal: (-) Edema Lymph: (-) Cervical adenopathy Neuro: Alert, Oriented x3, CN 2-12 intact grossly. Paresthesias to dorsum of R hand (chronic), strength 5/5 BUE. No CTL midline tenderness. Psych: Mood and affect Normal Triage Information Reviewed: Yes Vital Signs On Initial Exam: Initial Vitals Temp Pulse Resp BP Pulse Ox 97.2 F 77 20 113/84 99 05/07/19 18:19 05/07/19 18:19 05/07/19 18:19 05/07/19 18:19 05/07/19 18:19 Vital Signs Reviewed: Yes Procedures - Sedation Patient Received Moderate/Deep Sedation with Procedure: No Diagnostics - Vital Signs Vital Signs Temp Pulse Resp BP Pulse Ox 05/07/19 18:19 97.2 F 77 20 113/84 99 - Laboratory Result Diagrams: 05/07/19 19:24 05/07/19 19:24 Lab Statement: Any lab studies that have been ordered have been reviewed, and results considered in the medical decision making process. - Radiology CXR Radiology Interpretation Completed By: ED Physician Summary of Radiographic Findings: No acute abnormalities. An ED physician has reviewed and interpreted this report. Pending official scan. - CT APCT CT Interpretation Completed By: Radiologist Summary of CT Findings: IMPRESSION: 1. Fluid containing slightly prominent proximal small bowel suggestive of mild. ileus. No mechanical obstruction. 2. Probable ingested pills or other opaque material in the small bowel seen on. axial image 52. Please correlate with history. An ED physician has reviewed this report. - EKG 1931 Cardiac Rate: NL - 67 bpm EKG Rhythm: Sinus Rhythm ST Segment: Normal Ectopy: None - An EKG at 1931 reveals normal sinus rhythm 67 bpm, nml axis, nml interval. Summary of EKG Findings: An EKG at 193 reveals normal sinus rhythm 67 bpm, nml axis, nml intervals. No STEMI. No acute changes. An ED physician has reviewed and interpreted this report. Re-Evaluation - Re-Evaluation First Eval Re-Evaluation Time: 20:20 Change: Worse Comment: Patient reports persistent left-sided abdominal pain. As a result I ordered an abd CT. Second Eval Re-Evaluation Time: 21:36 Change: Improved - Patient's abdominal pain has improved. She will try to drink Gingerale. Opaque pills in her intestine that appeared on the APCT were OTC pills she took 2 days ago. Abdominal Pain Fem Course/Dx - Course Course Of Treatment: 39 y/o F w hx cervical spinal stenosis p/w multiple complaints: Chest Pain DDX: The patient is well appearing, with stable vitals. Given the patient's clinical presentation, highest on differential is viral syndrome. Although less likely, differential also includes the following : --Pneumothorax: Equal breath sounds, story inconsistent since gradual onset of symptoms. CXR shows no evidence of pneumothorax. Unlikely. --Cardiac tamponade: The history and physical are not concerning for tamponade. No Pulsus Paradoxus, no tachypnea. Unlikely. --Aortic dissection: The patient does not describe the classical tearing chest pain radiating into the back, and the CXR does not show mediastinal widening or other signs of aortic dissection. Unlikely. --PE: Vitals wnl (not hypoxic, tachycardic or tachypneic). PERC neg. --ACS: The initial EKG shows no ischemic changes. The initial troponin is not elevated. abdominal pain: suspect gastroenteritis. DDx also includes pancreatitis, GERD, renal stone, Cholecystitis, Less likely SBO, ectopic, PID, ovarian torsion, fibroids. Exam relatively unremarkable today, no rigidity or suggestions of acute surgical abd. Pt with negative Campbell's on exam. Will provide IVFs and zofran. Lipase to evaluate for pancreatitis. Will obtain cbc to assess for underlying infection. Cmp given reports of vomiting. Serum to r/o ectopic. Pt denies pelvic pain and vaginal discharge, also with no fever, so less likely PID. Patient also reporting L groin pain worse w walking over several weeks. States pain radiates from lower back into groin. No weakness or numbness. No known trauma. Strength 5/5 LE. No fevers. Suspect nerve impingement. Regarding chronic L hand numbness - has MRI w known stenosis, no new symptoms. - Diagnoses Provider Diagnoses: Nausea, Vomiting, Chest pain Discharge ED - Sign-Out/Discharge Documenting (check all that apply): Patient Departure - discharge - Discharge Plan Condition: Stable Disposition: HOME Prescriptions: Ondansetron ODT TAB* [Zofran 4 MG Odt TAB*] 4 mg PO Q8H PRN 4 Days #12 tab.odt PRN Reason: Nausea/Vomiting Patient Education Materials: Chest Pain (ED), Gastroenteritis (ED) Referrals: Sabina Mcgowan PA [Primary Care Provider] - Additional Instructions: You were seen in the emergency department for nausea vomiting abdominal pain and chest pain. Your CT scan did not show evidence of abnormalities. Please take Zofran at home as needed for nausea and vomiting. Please follow up with her primary care doctor. If any studies were not completed at the time of discharge you will be called with the relevant results. Please follow up with your primary care doctor in next 2-3 days and return to emergency department for worsening pain, chest pain, inability to eat or drink, weakness or numbness in her lower extremities or concerning symptoms. It was a pleasure taking care of you today. - Billing Disposition and Condition Condition: STABLE Disposition: Home - Attestation Statements Document Initiated by Marisol: Yes Documenting Scribe: Jose Madrid Provider For Whom Marisol is Documenting (Include Credential): Gelacio Brock MD Scribe Attestation: Jose Barry, scribed for Gelacio Brock MD on 05/08/19 at 1812. Scribe Documentation Reviewed: Yes Provider Attestation: The documentation as recorded by the Jose toribio accurately reflects the service I personally performed and the decisions made by Gelacio fitch MD Status of Scribe Document: Viewed
[2019-05-07 19:33] LABS: ABS Basophils 0.1 10^3/ul (0-0.2); ABS Eosinophils 0.1 10^3/ul (0-0.6); ABS Lymphocytes 1.7 10^3/ul (1.0-4.8); ABS Monocytes 0.9 10^3/ul (0-0.8); Eosinophil % 1.2 %; Hematocrit 40 % (35-47); Hemoglobin 13.8 g/dL (12.0-16.0); Mean Corpuscular HGB Conc 35 g/dL (31-36); Mean Corpuscular Hemoglobin 32 pg (27-31); Mean Corpuscular Volume 93 fL (80-97); Mean Platelet Volume 7.3 fL (7.4-10.4); Nucleated Red Blood Cells % 0.1; Platelet Count 273 10^3/uL (150-450); Red Blood Count 4.32 10^6 /uL (3.70-4.87); Red Cell Distribution Width 14 % (10-15); White Blood Count 8.7 10^3/uL (3.5-10.8)
[2019-05-07 19:53] LABS: ALT 47 U/L (7-52); AST 39 U/L (13-39); Albumin 3.7 g/dL (3.2-5.2); Albumin/Globulin Ratio 1.3 (1-3); Alkaline Phosphatase 48 U/L (34-104); Anion Gap 6 mmol/L (2-11); BUN/Creatinine Ratio 14.6 (8-20); Blood Urea Nitrogen 7 mg/dL (6-24); CO2 Carbon Dioxide 23 mmol/L (22-32); Chloride 109 mmol/L (101-111); EGFR African American 176.1 (>60); EGFR Non-African American 145.5 (>60); Globulin 2.9 g/dL (2-4); Glucose 82 mg/dL (70-100); Potassium 3.4 mmol/L (3.5-5.0); Sodium 138 mmol/L (135-145); Total Protein 6.6 g/dL (6.4-8.9)
[2019-05-07 19:59] LABS: HCG Pregnancy < 0.60 mIU/mL
[2019-05-07 22:26] VITALS: BP 116/81
== END | disposition home or self-care (01) ==
LOC: ED 18:12
DX: R07.9 Chest pain, unspecified (principal); R11.2 Nausea with vomiting, unspecified; R53.83 Other fatigue; F17.210 Nicotine dependence, cigarettes, uncomplicated
CPT/HCPCS: 36415; 71045; 74177; 80053; 83605; 84484; 84702; 85025; 93005; 96361; 96374; 96375; 99284; A9270-GY; J1885; J2270; J2405; Q9967